=== PATIENT | male | born 1970 | race Caucasian/White ===

== ENCOUNTER 2022-01-24 13:07 | Emergency (ER) | payer MEDICARE, BC, SELFPAY ==
[2022-01-24 13:17] VITALS: BP 185/128; PULSE 87; RESP 18; TEMP 36.3; O2SAT 96; BMI 28.7
--- NOTE | 2022-01-24 13:33 | ED_ITS ---
HPI - General Adult General Time Seen by Provider: 13:34 Date Seen: 01/24/22 Chief complaint: Flank Pain Stated complaint: Lower Back Pain Time Seen by Provider: 01/24/22 13:25 Source: patient Mode of arrival: ambulatory History of Present Illness HPI narrative: Santi is a 51-year-old male past medical history includes nephrolithiasis, MS who came over from urgent care for right flank pain. Patient states the pain has been there intermittently over the last week, he denies any hematuria, increased urinary frequency or pain with urination, he has had normal bowel movements as well. Denies any nausea vomiting, did have a partial colectomy in the past for complicated ulcerative colitis 2009. Patient states he had a kidney stone 3 years ago where he had fevers, nausea vomiting and worsening flank pain. Denies any fevers or chills at this time. Urgent care was concerned that he might have a kidney stone was sent over here for further imaging. Patient has been taking ibuprofen for pain. Pain is 6/10. He denies any chest pain or shortness of breath. He has no cardiac or stroke history. Related Data Home Medications Medication Instructions Recorded Confirmed amitriptyline 25 mg tablet 25 mg PO QDAY 01/24/22 01/24/22 atorvastatin 10 mg tablet 10 mg PO QDAY 01/24/22 01/24/22 cholecalciferol (vitamin D3) 25 25 mcg PO QDAY 01/24/22 01/24/22 mcg (1,000 unit) capsule ocrelizumab 30 mg/mL intravenous 600 mg IV [id number] 01/24/22 01/24/22 solution (Ocrevus) Allergies Allergy/AdvReac Type Severity Reaction Status Date / Time No Known Drug Allergies Allergy Verified 01/24/22 12:48 Review of Systems Status of ROS: Reports: 10 or more systems reviewed and unremarkable except as noted in History and below [facility] Social History Smoking Status: Never smoker Do you use any of these nicotine containing products: None Second hand tobacco smoke exposure: No How often do you have a drink containing alcohol: never How often do you have six or more drinks on one occasion: Never AUDIT-C Alcohol total score: 0 Non-prescribed substance use: denies use service: No Exam Narrative: Exam Narrative: General: NAD, sitting comfortably HEENT: PERRL, EOMI Neck: supple FROM Lungs: CTAB/L Heart: NSR, S1S2 Abdomen: Soft, BS normal, no tenderness to palpation. Back: tender to palpation the right lower lumbar paraspinal mm, no midline tenderness, tender to the right flank. Neuro: AAOX3 Const: Vital Signs, click to edit/add: Vital Signs - 24 hr 01/24/22 13:17 Temperature 97.3 F L Pulse Rate [Right Pulse Oximeter] 87 Respiratory Rate 18 Blood Pressure [Le ft Upper Arm] 185/128 H Pulse Oximetry 96 Oxygen Delivery Me thod Room Air Course Course Hospital Course: 130 PM: AIDET performed. Vitals show elevated blood pressure reading, will continue to monitor, for pain IM dosed Toradol 30 mg, patient does not want an IV at this time, he has been drinking normally, will obtain urinalysis, CBC, CMP, and urinalysis, suspecting urolithiasis. Patient was in agreement. Reevaluation(s) Reevaluation #1: will obtain CT abdomen and pelvis without IV contrast based on his history of nephrolithiasis. CBC showed no leukocytosis, urinalysis within normal limits, Metabolic panel showed mildly elevated LFTs. patient is feeling better after above care given. Reevaluation #2: CT abdomen pelvis without IV contrast: Redemonstration of parapelvic cystic changes of the kidneys and nonobstructive calculi in the collecting systems without evidence of distal obstructive calculus. Postoperative changes of the colon and small bowel status post resection and primary anastomosis with redemonstration of a focal loop of redundant sigmoid colon in the right upper quadrant similar to remote comparison without definite evidence of volvulus or obstruction. Patient was updated on his imaging results, no intra-abdominal findings, he is feeling better after above care given, he will continue with Motrin 400-600 mg every 4-6 hours as needed for pain, patient does have a history of right-sided sciatic pain which could be the cause for his symptoms, he has follow-up next week with his primary care provider. Reasons to return were given. Time: 15:50 Vital Signs Vital signs: Initial Vital Signs Temperature 97.3 F L 01/24/22 13:17 Temperature Source Temporal Artery Scan 01/24/22 13:17 Pulse Rate 87 01/24/22 13:17 Respiratory Rate 18 01/24/22 13:17 Blood Pressure 185/128 H 01/24/22 13:17 Blood Pressure Mean 147 01/24/22 13:17 Blood Pressure Position Sitting 01/24/22 13:17 Pulse Oximetry 96 01/24/22 13:17 Oxygen Delivery Method 01/24/22 13:17 Vital Signs Temperature 97.3 F L 01/24/22 13:17 Pulse Rate 87 01/24/22 13:17 Respiratory Rate 18 01/24/22 13:17 Blood Pressure 185/128 H 01/24/22 13:17 Pulse Oximetry 96 01/24/22 13:17 Oxygen Delivery Method 01/24/22 13:17 Temperature 97.3 F L 01/24/22 13:17 Pulse Rate 87 01/24/22 13:17 Respiratory Rate 18 01/24/22 13:17 Blood Pressure 185/128 H 01/24/22 13:17 Pulse Oximetry 96 01/24/22 13:17 Oxygen Delivery Method 01/24/22 13:17 Medical Decision Making Lab Data Labs: Lab Results 01/24/22 01/24/22 01/24/22 Range/Units 13:30 13:43 13:43 WBC 6.64 (4.50-11.00) K/uL RBC 5.31 (4.30-5.90) m/uL Hgb 16.0 (13.5-17.5) gm/dL Hct 44.9 (37.0-53.0) % MCV 85 (80-100) fL MCH 30 (26-34) pg MCHC 36 (32-36) gm/dL RDW Coeff of Caryl 12.3 (11.5-15.5) % Plt Count 204 (140-440) K/uL Neut % (Auto) 73.6 H (42.0-72.0) % Lymph % (Auto) 17.5 L (20-44) % [place] % (Auto) 6.6 (0.0-11.0) % Eos % (Auto) 1.8 (0.0-7.0) % Baso % (Auto) 0.3 (0.0-3.0) % Neut # (Auto) 4.90 (1.7-7.0) K/uL Lymph # (Auto) 1.20 (0.90-2.90) K/uL [place] # (Auto) 0.40 (0.00-0.90) K/UL Eos # (Auto) 0.12 (0.00-0.50) K/uL Baso # (Auto) 0.02 (0.00-0.30) K/uL Abs Immat Gran (auto) 0.01 (0.00-0.30) K/uL Sodium 137 (135-149) mmol/L Potassium 4.1 (3.6-5.1) mmol/L Chloride 105 (96-114) mmol/L Carbon Dioxide 21 (20-32) mmol/L BUN 11 (7-30) mg/dL Creatinine 0.9 (0.5-1.5) mg/dL Estimated Creat Clear 98.01 Estimated GFR 102 ml/min Glucose 115 (60-115) mg/dL Calcium 9.2 (8.4-10.6) mg/dL Total Bilirubin 0.6 (0.1-1.5) mg/dL AST 42 H (12-35) U/L ALT 62 H (4-50) U/L Alkaline Phosphatase 93 (40-150) U/L Total Protein 7.4 (6.0-8.3) g/dL Albumin 4.7 (3.3-5.0) g/dL Urine Color Yellow (Yellow) Urine Appearance Clear (Clear) Urine pH 6.0 (5.0-8.5) Ur Specific [place] 1.025 (1.000-1.030) Urine Protein Negative (Negative) Urine Glucose (UA) Negative (Negative) Urine Ketones Negative (Negative) Urine Blood Negative (Negative) Urine Nitrite Negative (Negative) Urine Bilirubin Negative (Negative) Urine Urobilinogen 0.2 (0.2-1.0) Ur Leukocyte Esterase Negative (Negative) Urine RBC 0-2 (0-2) Urine WBC 0-2 (0-5) Ur Squamous Epith Cells None (None-Few) Urine Bacteria None (None) Discharge Plan Discharge Clinical Impression: Right flank pain, History of nephrolithiasis Patient Disposition: Home, Self-Care Condition: Improved Instructions: Flank Pain (ED) Additional Instructions: To continue with Motrin or ibuprofen 400-600 mg every 4-6 hours as needed for pain, follow-up with primary care provider as scheduled next week, return if worsening symptoms. Prescriptions: No Action amitriptyline 25 mg tablet 25 mg PO QDAY atorvastatin 10 mg tablet 10 mg PO QDAY cholecalciferol (vitamin D3) 25 mcg (1,000 unit) capsule 25 mcg PO QDAY Ocrevus 30 mg/mL solution 600 mg IV [id number] Follow Up/Referrals: Kenneth Louie MD [Primary Care Provider] - Stand Alone Forms: [facility] Info Instructions
[2022-01-24] MEDS: KETOROLAC 30 MG/ML inj IM (13:37)
[2022-01-24 13:48] LABS: Basophils Absolute Auto 0.02 K/uL (0.00-0.30); Basophils Percent Auto 0.3 % (0.0-3.0); Eosinophils Absolute Auto 0.12 K/uL (0.00-0.50); Eosinophils Percent Auto 1.8 % (0.0-7.0); Hematocrit 44.9 % (37.0-53.0); Immature Granulocytes Abs Auto 0.01 K/uL (0.00-0.30); Lymphocytes Percent Auto 17.5 % (20-44); Mean Corpuscular HGB Conc 36 gm/dL (32-36); Mean Corpuscular Hemoglobin 30 pg (26-34); Mean Corpuscular Volume 85 fL (80-100); Monocytes Percent Auto 6.6 % (0.0-11.0); Neutrophils Percent Auto 73.6 % (42.0-72.0); Platelet Count* 204 K/uL (140-440); RDW Coefficient of Variation % 12.3 % (11.5-15.5); Red Blood Count 5.31 m/uL (4.30-5.90); White Blood Count* 6.64 K/uL (4.50-11.00)
[2022-01-24 13:51] LABS: Slide Review Reflex No
[2022-01-24 13:57] LABS: Appearance Urine Clear (Clear); Bilirubin Urine Negative (Negative); Blood Urine Negative (Negative); Color Urine Yellow (Yellow); Glucose Urine Negative (Negative); Ketones Urine Negative (Negative); Leukocyte Esterase Urine Negative (Negative); Nitrite Urine Negative (Negative); Protein Urine Negative (Negative); Specific Gravity Urine 1.025 (1.000-1.030); Urobilinogen Urine 0.2 (0.2-1.0)
[2022-01-24 14:07] LABS: Albumin* 4.7 g/dL (3.3-5.0); Chloride* 105 mmol/L (96-114)
[2022-01-24 14:08] LABS: Potassium* 4.1 mmol/L (3.6-5.1); Sodium* 137 mmol/L (135-149)
[2022-01-24 14:10] LABS: Aspartate Amino Transferase* 42 U/L (12-35); Bilirubin Total* 0.6 mg/dL (0.1-1.5); Carbon Dioxide* 21 mmol/L (20-32); Creatinine* 0.9 mg/dL (0.5-1.5); Est. Creatinine Clearance* 98.01; Estimated Glomerular Filt Rate 102 ml/min
[2022-01-24 14:11] LABS: Alanine Aminotransferase* 62 U/L (4-50); Alkaline Phosphatase* 93 U/L (40-150); Blood Urea Nitrogen* 11 mg/dL (7-30); Calcium* 9.2 mg/dL (8.4-10.6); Glucose* 115 mg/dL (60-115); Total Protein* 7.4 g/dL (6.0-8.3)
[2022-01-24 14:16] LABS: RBC Urine 0-2 (0-2); WBC Urine 0-2 (0-5)
--- NOTE | 2022-01-24 14:23 | CRLHL7_ITS ---
For Patients: As a result of the 21st Century Cures Act, medical imaging exams and procedure reports are released immediately into your electronic medical record. You may view this report before your referring provider. If you have questions, please contact your health care provider. Indication: Right flank pain, history of nephrolithiasis Technique: Volumetric multidetector CT images of the abdomen and pelvis were without the administration of intravenous contrast. Comparison: CT abdomen and pelvis August 27, 2018 Findings: The lung bases are clear. The liver is enlarged with moderate hepatic steatosis and hepatomegaly. There is no focal abnormality. The gallbladder is unremarkable without evidence of radiopaque calculus. There is no significant common biliary ductal dilatation or abrupt cut off. The spleen is normal in attenuation and size. The stomach and duodenum are grossly unremarkable. The pancreas is normal in attenuation without significant atrophy. The adrenal glands are unremarkable. There are parapelvic cystic changes of the bilateral kidneys again seen with nonobstructive calculi in the collecting systems. No evidence of distal obstructive calculus. Postoperative changes of the bowel and colon status post multiple resections and primary anastomosis with demonstration of somewhat prominent loop of sigmoid colon seen within the right upper quadrant with mild gaseous distention. There is a similar configuration seen on remote comparison exam. The appendix is not visualized. There is no significant mesenteric, retroperitoneal, or pelvic sidewall lymph nodes. The aorta is nonaneurysmal. There is no significant atherosclerotic disease appreciated. The solid pelvic viscera are grossly unremarkable. There is no free fluid or free air. Postoperative changes of the anterior abdomen are appreciated. The lumbar vertebral body heights are grossly maintained with mild to moderate multilevel degenerative disc disease. There is minimal retrolisthesis of L2 on L3. There is moderate facet arthrosis. There is no evidence of displaced fracture or dislocation. Impression: Redemonstration of parapelvic cystic changes of the kidneys and nonobstructive calculi in the collecting systems without evidence of distal obstructive calculus. Postoperative changes of the colon and small bowel status post resection and primary anastomosis with redemonstration of a focal loop of redundant sigmoid colon in the right upper quadrant similar to remote comparison without definite evidence of volvulus or obstruction. Otherwise, no definite acute intra-abdominal abnormality is appreciated. Please note that all CT scans at this facility use dose modulation, iterative reconstruction, and/or weight-based dosing when appropriate to reduce radiation dose to as low as reasonably achievable. Dictated by Babak Harp MD @ 01/24/2022 3:40:01 PM (Electronically Signed)
[2022-01-24 15:55] VITALS: BP 156/111
== END 2022-01-24 15:55 | disposition home or self-care (01) ==
PROVIDERS: Emergency Provider Student in an Organized Health Care Education/Training Program; PCP Surgery
DX: R10.9 Unspecified abdominal pain (principal); Z87.442 Personal history of urinary calculi
CPT/HCPCS: 36415; 74176; 80053; 81001; 81003; 85025; 96372; 99283; 99284; J1885

== ENCOUNTER 2023-12-03 15:28 | Emergency (ER) | payer MEDICARE, BC, SELFPAY ==
[2023-12-03 15:37] VITALS: BP 153/98; PULSE 64; RESP 18; TEMP 35.8; O2SAT 97; BMI 28.1
--- NOTE | 2023-12-03 15:46 | ED_ITS ---
HPI - General Adult General Date Seen: 12/03/23 Chief complaint: Weakness Stated complaint: dehydrated, COVID+ Time Seen by Provider: 12/03/23 15:46 History of Present Illness HPI narrative: This is a 53-year-old male with a history of ulcerative cor lightest and previous colectomy, history of kidney stones, also history of diabetes type 2, multiple sclerosis. His had a recent trip to [place] and back. She came down with COVID last Friday, the day after she got home and tested positive. She is now mostly getting better. The patient developed symptoms of COVID 4 days ago, on Friday. Symptoms started with fatigue, dizziness, weakness, mild cough. He was feeling run down and actually had a couple of falls (not uncommon because of his MS) on Friday and Friday. He was doing a bit better yesterday on Friday but was not back to normal. Today in addition to his other symptoms he is now having GI symptoms including significant watery diarrhea, nausea and dry heaving, left flank pain, and worsening weakness. Because of his history of colectomy he tends to have at least 5 soft/watery stools per day. Often times when he gets behind on fluids, it is hard for him to catch up orally because his small intestine just does not absorb in retained enough water. He is feeling very weak and feels like he needs IV fluids. He is not having any fever. No chest pain. He is not really short of breath but his left flank hurts when he breathes. He does have a cough, nonproductive. No sore throat. No headache. No swelling in his legs. He has had previous COVID vaccines. Related Data Home Medications ?Medication ?Instructions ?Recorded ?Confirmed amitriptyline 25 mg tablet 25 mg PO QDAY 01/24/22 01/20/23 atorvastatin 10 mg tablet 10 mg PO QDAY 01/24/22 12/03/23 ocrelizumab 30 mg/mL intravenous 600 mg IV [id number] 01/24/22 12/03/23 solution (Ocrevus) pregabalin 75 mg capsule 75 mg PO BID 12/03/23 12/03/23 Previous Rx's ?Medication ?Instructions ?Recorded cephalexin 500 mg capsule 500 mg PO Q12H #10 caps 12/03/23 nirmatrelvir 300 mg (150 mg See Rx Instructions PO .COMPLEX 12/03/23 x2)-ritonavir 100 mg tablet,dose #30 ea pack (Paxlovid) ondansetron HCl 4 mg tablet 4 mg PO Q8H PRN nausea and 12/03/23 vomiting 4 days #10 tabs Allergies Allergy/AdvReac Type Severity Reaction Status Date / Time No Known Drug Allergies Allergy Verified 12/03/23 15:42 [facility] Social History Smoking Status: Never smoker Do you use any of these nicotine containing products: None Second hand tobacco smoke exposure: No How often do you have a drink containing alcohol: never How often do you have six or more drinks on one occasion: Never AUDIT-C Alcohol total score: 0 Non-prescribed substance use: denies use service: No Exam Narrative: Exam Narrative: Constitutional: Appears well-developed and well-nourished. Alert. Conversant. Requires assistance to sit up on the edge of the bed for lung exam. Generalized weakness HENT: Head: Atraumatic. Nose: Nose normal. Mouth/Throat: Oral mucosa is clear but mucous membranes dry. Eyes: Conjunctivae normal. EOM normal. Pupils equal, round, and reactive to light. No scleral icterus. Neck: Normal range of motion. Neck supple. No tracheal deviation present. No JVD Cardiovascular: Normal rate, regular rhythm. No gallop. No friction rub. No murmur heard. Symmetric radial artery pulses Pulmonary/Chest: Effort normal. No stridor. No respiratory distress. No wheezes. No rales. No rhonchi . No tenderness. Abdominal: Soft. Bowel sounds normal. No distension. No mass. No tenderness. No rebound. No guarding. Left CVA tenderness. Musculoskeletal: RUE: Normal range of motion. No tenderness. No deformity LUE: Normal range of motion. No tenderness. No deformity RLE: Normal range of motion. No edema. No tenderness. No deformity LLE: Normal range of motion. No edema. No tenderness. No deformity Neurological: Alert and oriented to person, place, and time. Normal strength. CN II-VII intact. No sensory deficit. GCS eye subscore is 4. GCS verbal subscore is 5. GCS motor subscore is 6. Normal coordination Skin: Skin is warm and dry. No rash noted. No pallor. Normal capillary refill. Psychiatric: Normal mood. Flat affect because he is feeling run down affect. supportive. They interact politely together Const: Vital Signs, click to edit/add: Vital Signs - 24 hr 12/03/23 15:37 12/03/23 18:51 Temperature 96.5 F L Pulse Rate [Pulse Oximeter] 64 71 Respiratory Rate 18 18 Blood Pressure [Ri ght Upper Arm] 153/98 H 135/95 H Pulse Oximetry 97 95 Oxygen Delivery Me thod Room Air Room Air Course Course ED Course: Recheck-feeling substantially better after receiving a L of lactated Ringer's. Nausea improved after Zofran. Tolerating p.o.. Feels much stronger and is requesting discharge. Would like to check urine because of his left flank pain. He agrees to stay to provide urinalysis. Vital Signs Vital signs: Initial Vital Signs Temperature 96.5 F L 12/03/23 15:37 Temperature Source Temporal Artery Scan 12/03/23 15:37 Pulse Rate 64 12/03/23 15:37 Respiratory Rate 18 12/03/23 15:37 Blood Pressure 153/98 H 12/03/23 15:37 Blood Pressure Mean 116 H 12/03/23 15:37 Blood Pressure Position Sitting 12/03/23 15:37 Pulse Oximetry 97 12/03/23 15:37 Oxygen Delivery Method Room Air 12/03/23 15:37 Vital Signs Temperature 96.5 F L 12/03/23 15:37 Pulse Rate 64 12/03/23 15:37 Respiratory Rate 18 12/03/23 15:37 Blood Pressure 153/98 H 12/03/23 15:37 Pulse Oximetry 97 12/03/23 15:37 Oxygen Delivery Method Room Air 12/03/23 15:37 Temperature 96.5 F L 12/03/23 15:37 Pulse Rate 71 12/03/23 18:51 Respiratory Rate 18 12/03/23 18:51 Blood Pressure 135/95 H 12/03/23 18:51 Pulse Oximetry 95 12/03/23 18:51 Oxygen Delivery Method Room Air 12/03/23 18:51 Medications Administered Medications: Discontinued Medications Generic Name Dose Route Start Last Admin Trade Name Freq PRN Reason Stop Dose Admin Ketorolac Tromethamine 15 mg 12/03/23 16:11 12/03/23 16:48 Ketorolac 15 Mg/Ml Inj IVP 12/03/23 16:12 15 mg ONCE ONE Administration Lactated Ringer's 1,000 ml 12/03/23 16:11 12/03/23 16:45 Lactated Ringers 1000 Ml IV 12/03/23 16:12 1,000 ml ONCE ONE Administration Ondansetron HCl 4 mg 12/03/23 16:11 12/03/23 16:46 Ondansetron 2 Mg/Ml Inj IVP 12/03/23 16:12 4 mg ONCE ONE Administration Medical Decision Making MDM Narrative Medical decision making narrative: Very pleasant but medically complex 53-year-old male with a history of UC and buttock colectomy with chronic diarrhea, history of type 2 diabetes, and history of MS. He presents to the ER today with symptoms of coronavirus. He tested positive with a home test yesterday. He does have mild cough but fortunately no hypoxia or respiratory distress. Chest x-ray does show subtle bilateral infiltrates which are consistent with COVID pneumonia. At this point does not require hospitalization. He also has significant constitutional symptoms including fatigue, myalgias, weakness, and a lot of GI symptoms with nausea and vomiting and diarrhea which have led to significant dehydration. He feels much better after receiving IV fluids. Nausea improved after Zofran. He feels confident that he will be able to maintain hydration at home. Laboratory workup shows normal WBC, normal electrolytes and kidney function save for mildly low bicarb which would be consistent with dehydration. Glucose is only minimally elevated. No evidence for DKA. He is also complaining of pain in his left flank and left lateral side of his abdomen. Differential here would include myalgias from COVID, pyelonephritis, kidney stone, among others. The pain is not in his chest or ribs to suggest PE, pneumothorax, pleural effusion. Urinalysis obtained and does show pyuria but no hematuria on the micro (some evidence of blood on the urinalysis). Will treat with a course of antibiotics for urinary tract infection. At this point no evidence for urosepsis requiring hospitalization. With his high risk medical conditions and coronavirus (currently on 4th day of symptoms) I do think he would be a candidate for Paxlovid to prevent serious illness. Discussed with the patient and his . They agree. Prescription provided. Based on the [employer] med interaction database we do need to hold his atorvastatin while he is on Paxlovid. Discussed with the patient and his . They understand. Precautions for return to the ER reviewed and questions answered.. Lab Data Labs: Lab Results 12/03/23 12/03/23 Range/Units 16:30 18:00 WBC 9.57 (4.50-11.00) K/uL RBC 5.51 (4.30-5.90) m/uL Hgb 16.1 (13.5-17.5) gm/dL Hct 46.7 (37.0-53.0) % MCV 85 (80-100) fL MCH 29 (26-34) pg MCHC 35 (32-36) gm/dL RDW Coeff of Caryl 11.9 (11.5-15.5) % Plt Count 175 (140-440) K/uL Neut % (Auto) 91.4 H (42.0-72.0) % Lymph % (Auto) 4.8 L (20-44) % [place] % (Auto) 3.6 (0.0-11.0) % Eos % (Auto) 0.0 (0.0-7.0) % Baso % (Auto) 0.0 (0.0-3.0) % Neut # (Auto) 8.70 H (1.7-7.0) K/uL Lymph # (Auto) 0.50 L (0.90-2.90) K/uL [place] # (Auto) 0.30 (0.00-0.90) K/UL Eos # (Auto) 0.00 (0.00-0.50) K/uL Baso # (Auto) 0.00 (0.00-0.30) K/uL Abs Immat Gran (auto) 0.02 (0.00-0.30) K/uL Imm/Tot Granulo (auto) 0.2 % Sodium 136 (135-149) mmol/L Potassium 4.1 (3.6-5.1) mmol/L Chloride 106 (96-114) mmol/L Carbon Dioxide 18 L (20-32) mmol/L Anion Gap 12 (7-15) mEq/L BUN 16 (7-30) mg/dL Creatinine 1.3 (0.5-1.5) mg/dL Estimated Creat Clear 64.20 Estimated GFR 65 ml/min Glucose 173 H (60-115) mg/dL Calcium 9.1 (8.4-10.6) mg/dL Total Bilirubin 0.7 (0.1-1.5) mg/dL AST 37 H (12-35) U/L ALT 38 (4-50) U/L Alkaline Phosphatase 95 (40-150) U/L Total Protein 7.4 (6.0-8.3) g/dL Albumin 4.9 (3.3-5.0) g/dL Urine Color Yellow (Yellow) Urine Appearance Slightly Cloudy A (Clear) Urine pH 5.5 (5.0-8.5) Ur Specific [place] >= 1.030 (1.000-1.030) Urine Protein 1+ A (Negative) Urine Glucose (UA) Negative (Negative) Urine Ketones 3+ A (Negative) Urine Blood 3+ A (Negative) Urine Nitrite Negative (Negative) Urine Bilirubin Negative (Negative) Urine Urobilinogen 0.2 (0.2-1.0) Ur Leukocyte Esterase Negative (Negative) Urine RBC 0-2 (0-2) Urine WBC 25-50 A (0-5) Ur Squamous Epith Cells None (None-Few) Urine Bacteria Few A (None) Fine Granular Casts Few A (None) Imaging Data Chest x-ray: Attestation: I have reviewed the pertinent imaging results. My impression: Probable small right and left lower lobe infiltrates-Dr. Salamanca. Radiologist's impression: IMPRESSION: Small focal consolidation at the right medial lung base with a questionable additional left medial lung base consolidation. While these could reflect atelectasis given the slightly low lung volumes, they are concerning for possible multifocal pneumonia in the setting of reported COVID ECG Data Attestation: I personally reviewed and interpreted this ECG as follows: Interpretation: Normal sinus rhythm Rate: 79 NE: 200 QRS axis: normal ST segment/T wave: No ST elevation or depression QTc: 421 Discharge Plan Discharge Clinical Impression: COVID-19, Acute dehydration, Acute UTI Patient Disposition: Home, Self-Care Condition: Stable Instructions: Dehydration (ED), Urinary Tract Infection in Men (DC), COVID-19 (Coronavirus Disease 2019) (ED), COVID-19 and Chronic Health Conditions (ED) Additional Instructions: As we discussed, please come back to the ER right away if you have any problems- especially if you have worsening trouble breathing, low oxygen levels, uncontrolled vomiting, dehydration, or weakness, or if you have any other problems. Start on Paxlovid as you are able. This may help reduce the chance of severe coronavirus illness . While you are on Paxlovid, do not take your atorvastatin. You can take your other medication Steak the [id number] treat your urinary tract infection Use Zofran if need to treat nausea and vomiting. Prescriptions: New ondansetron HCl 4 mg tablet 4 mg PO Q8H PRN (Reason: nausea and vomiting) 4 Days Qty: 10 0RF cephalexin 500 mg capsule 500 mg PO Q12H Qty: 10 0RF Paxlovid 300 mg (150 mg x 2)-100 mg tablets,dose pack See Rx Instructions .ROUTE .COMPLEX Qty: 30 0RF Rx Instructions: take TWO 150 mg tablets of nirmatrelvir with ONE 100 mg tablet of ritonavir twice daily for 5 days No Action amitriptyline 25 mg tablet 25 mg PO QDAY atorvastatin 10 mg tablet 10 mg PO QDAY Ocrevus 30 mg/mL solution 600 mg IV [id number] pregabalin 75 mg capsule 75 mg PO BID Follow Up/Referrals: Kenneth Louie MD [Primary Care Provider] - Stand Alone Forms: [employer] Info Instructions
--- NOTE | 2023-12-03 16:12 | CRLHL7_ITS ---
For Patients: As a result of the Century Cures Act, medical imaging exams and procedure reports are released immediately into your electronic medical record. You may view this report before your referring provider. If you have questions, please contact your health care provider. INDICATION: COVID, cough, weakness. TECHNIQUE: Chest 1 views. COMPARISON: Chest radiographs dated 06/08/2019. FINDINGS: Heart and mediastinum: Heart size is normal. Unremarkable mediastinum. Lungs and pleural spaces: Slightly low lung volumes. Focal consolidation at the right medial lung base, partially obscuring the right heart border. Query additional hazy opacity at the left medial lung base. No sign of pleural effusion. No pneumothorax. Bones and soft tissues: No significant findings. IMPRESSION: Small focal consolidation at the right medial lung base with a questionable additional left medial lung base consolidation. While these could reflect atelectasis given the slightly low lung volumes, they are concerning for possible multifocal pneumonia in the setting of reported COVID. Dictated by Shade Hinton MD @ 12/03/2023 5:50:04 PM (Electronically Signed)
[2023-12-03 16:41] LABS: Hematocrit 46.7 % (37.0-53.0); Hemoglobin* 16.1 gm/dL (13.5-17.5); Immature Granulocytes Abs Auto 0.02 K/uL (0.00-0.30); Immature Granulocytes Pct Auto 0.2 %; Lymphocytes Percent Auto 4.8 % (20-44); Mean Corpuscular HGB Conc 35 gm/dL (32-36); Mean Corpuscular Hemoglobin 29 pg (26-34); Mean Corpuscular Volume 85 fL (80-100); Monocytes Percent Auto 3.6 % (0.0-11.0); Neutrophils Percent Auto 91.4 % (42.0-72.0); Platelet Count* 175 K/uL (140-440); RDW Coefficient of Variation % 11.9 % (11.5-15.5); Red Blood Count 5.51 m/uL (4.30-5.90); White Blood Count* 9.57 K/uL (4.50-11.00)
[2023-12-03 16:45] LABS: Slide Review Reflex No
[2023-12-03] MEDS: LACTATED RINGERS 1000 ML IV (16:45)
[2023-12-03] MEDS: ONDANSETRON 2 MG/ML inj 4 MG IVP (16:46)
[2023-12-03] MEDS: KETOROLAC 15 MG/ML inj IVP (16:48)
[2023-12-03 16:56] LABS: Albumin* 4.9 g/dL (3.3-5.0); Chloride* 106 mmol/L (96-114)
[2023-12-03 16:57] LABS: Potassium* 4.1 mmol/L (3.6-5.1); Sodium* 136 mmol/L (135-149)
[2023-12-03 16:59] LABS: Anion Gap 12 mEq/L (7-15); Aspartate Amino Transferase* 37 U/L (12-35); Bilirubin Total* 0.7 mg/dL (0.1-1.5); Carbon Dioxide* 18 mmol/L (20-32); Creatinine* 1.3 mg/dL (0.5-1.5); Estimated Glomerular Filt Rate 65 ml/min; Total Protein* 7.4 g/dL (6.0-8.3)
[2023-12-03 17:00] LABS: Alanine Aminotransferase* 38 U/L (4-50); Alkaline Phosphatase* 95 U/L (40-150); Blood Urea Nitrogen* 16 mg/dL (7-30); Calcium* 9.1 mg/dL (8.4-10.6); Glucose* 173 mg/dL (60-115)
[2023-12-03 18:09] LABS: Bilirubin Urine Negative (Negative); Blood Urine 3+ (Negative); Glucose Urine Negative (Negative); Ketones Urine 3+ (Negative); Leukocyte Esterase Urine Negative (Negative); Nitrite Urine Negative (Negative); Protein Urine 1+ (Negative); Specific Gravity Urine >= 1.030 (1.000-1.030); Urobilinogen Urine 0.2 (0.2-1.0); pH Urine 5.5 (5.0-8.5)
[2023-12-03 18:20] LABS: Appearance Urine Slightly Cloudy (Clear); Color Urine Yellow (Yellow)
[2023-12-03 18:39] LABS: RBC Urine 0-2 (0-2)
[2023-12-03 18:40] LABS: Bacteria Urine Few; Fine Granular Casts Urine Few; WBC Urine 25-50 (0-5)
[2023-12-03 18:51] VITALS: BP 135/95; PULSE 71; RESP 18; O2SAT 95
== END 2023-12-03 19:22 | disposition home or self-care (01) ==
PROVIDERS: Emergency Provider Emergency Medicine; PCP Surgery
DX: U07.1 COVID-19 (principal); N39.0 Urinary tract infection, site not specified
CPT/HCPCS: 36415; 71045; 80053; 81001; 85025; 87086; 93005; 96374; 96375; 99283; 99284; J1885; J2405; J7120

== ENCOUNTER 2024-02-12 14:47 | Emergency (ER) | payer MEDICARE, BC, SELFPAY ==
[2024-02-12 14:53] VITALS: BP 122/83; PULSE 108; RESP 20; TEMP 36.6; O2SAT 97; BMI 27.3
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
[2024-02-12] MEDS: ONDANSETRON 2 MG/ML inj 4 MG IVP (15:30)
[2024-02-12] MEDS: 0.9 % SODIUM CHLORIDE 500 ML 500 ML IV (15:40)
[2024-02-12] MEDS: KETOROLAC 30 MG/ML inj IVP (15:47)
== END 2024-02-12 16:30 | disposition home or self-care (01) ==
PROVIDERS: Emergency Provider Emergency Medicine Emergency Medical Services; PCP Surgery
DX: E86.9 Volume depletion, unspecified (principal)
CPT/HCPCS: 96374; 96375; 99284; J1885; J2405; J7030

== ENCOUNTER 2025-02-09 17:04 | Emergency (ER) | payer MEDICARE, BC, SELFPAY ==
[2025-02-09] VITALS (10 sets, daily range): BP systolic 140–153; BP diastolic 106–111; PULSE 103–122; RESP 16–18; TEMP 36.8; O2SAT 91–96; BMI 28.0
[2025-02-09] MEDS: LACTATED RINGERS 1000 ML 1,000 ML IV (19:16)
--- NOTE | 2025-02-09 19:28 | ED.GENADULT ---
HPI - General Adult General Date Seen: 02/09/25 Chief complaint: Abdominal Pain Stated complaint: dehydrated, stomach pain Time Seen by Provider: 02/09/25 18:36 Source: patient Mode of arrival: ambulatory Limitations: no limitations History of Present Illness HPI narrative: Patient is a 54-year-old male with a history of MS and a for colectomy presenting to the emergency department for concerns of dehydration. States this morning he started having abdominal pain that has since been improving. Pain was in his mid abdominal region and was very tender to the touch. This still having some pain but is not as bad. He has also noticed distention of his abdomen overall he states he is feeling dehydrated. Has been having issues with dehydration ever since his colectomy and states this feels just like his previous episodes. Says this happens once a year. Is adamant that the symptoms seem exactly the same to his previous episodes of dehydration. Has not noticed any worsening diarrhea compared to his baseline. Denies fevers, chills, chest pain, shortness of breath, dysuria, headache, lightheadedness, dizziness, weakness, numbness. No other concerns noted at this time. Related Data Home Medications ?Medication ?Instructions ?Recorded ?Confirmed amitriptyline 25 mg tablet 25 mg PO QDAY 01/24/22 02/12/24 atorvastatin 10 mg tablet 10 mg PO QDAY 01/24/22 02/12/24 ocrelizumab 30 mg/mL intravenous 600 mg IV [id number] 01/24/22 02/12/24 solution (Ocrevus) amoxicillin 875 mg-potassium 1 tab PO BID 02/12/24 02/12/24 clavulanate 125 mg tablet blood-glucose sensor (Dexcom G7 02/12/24 02/12/24 Sensor device) pregabalin 75 mg capsule 75 mg PO BID 02/12/24 02/12/24 Allergies Allergy/AdvReac Type Severity Reaction Status Date / Time No Known Drug Allergies Allergy Verified 02/09/25 17:34 Review of Systems Status of ROS: Reports: 10 or more systems reviewed and unremarkable except as noted in History and below [facility] Social History Smoking Status: Never smoker Do you use any of these nicotine containing products: None Second hand tobacco smoke exposure: No How often do you have a drink containing alcohol: never How often do you have six or more drinks on one occasion: Never AUDIT-C Alcohol total score: 0 Non-prescribed substance use: denies use service: No Exam Narrative: Exam Narrative: Const: Well-nourished, Well-developed, in mild distress Eyes: PERRL, no conjunctival injection, and symmetrical lids HENT: Atraumatic external nose and ears. Moist mucous membranes. Neck: Symmetric, trachea midline, No thyromegaly. CVS: Tachycardia, No murmurs or gallops. Peripheral pulses 2+ and equal in all extremities RESP: Unlabored respiratory effort. Clear to auscultation bilaterally. GI: Mild mid abdominal tenderness and mild to moderate abdominal distension, No rebound or guarding. MSK:Extremities w/o deformity, Normal Active ROM Skin: Warm, Dry. No rashes or lesions. Neuro: Normal Muscle tone, No focal neurological deficits. Psych: Awake, Alert, & Oriented x3. Appropriate mood and affect. Const: Vital Signs, click to edit/add: Vital Signs - 24 hr 02/09/25 17:35 02/09/25 18:40 02/09/25 19:00 Temperature 98.2 F Pulse Rate 104 H 108 H Pulse Rate [Pulse Oximeter] 122 H Respiratory Rate 18 Blood Pressure 140/106 H Blood Pressure [Ri ght Upper Arm] 147/106 H Pulse Oximetry 96 95 95 Oxygen Delivery Me thod Room Air 02/09/25 19:01 02/09/25 19:30 02/09/25 19:42 Temperature Pulse Rate 103 H 109 H Pulse Rate [Pulse Oximeter] Respiratory Rate 16 16 Blood Pressure 150/111 H 153/107 H Blood Pressure [Ri ght Upper Arm] Pulse Oximetry 95 94 Oxygen Delivery Me thod 02/09/25 19:45 02/09/25 20:00 02/09/25 20:05 Temperature Pulse Rate 104 H 106 H 105 H Pulse Rate [Pulse Oximeter] Respiratory Rate Blood Pressure Blood Pressure [Ri ght Upper Arm] Pulse Oximetry 93 92 93 Oxygen Delivery Me thod 02/09/25 20:15 Temperature Pulse Rate 109 H Pulse Rate [Pulse Oximeter] Respiratory Rate Blood Pressure Blood Pressure [Ri ght Upper Arm] Pulse Oximetry 91 Oxygen Delivery Me thod Course Vital Signs Vital signs: Initial Vital Signs Temperature 98.2 F 02/09/25 17:35 Temperature Source Temporal Artery Scan 02/09/25 17:35 Pulse Rate 122 H 02/09/25 17:35 Respiratory Rate 18 02/09/25 17:35 Blood Pressure 147/106 H 02/09/25 17:35 Blood Pressure Mean 119 H 02/09/25 17:35 Pulse Oximetry 96 02/09/25 17:35 Oxygen Delivery Method Room Air 02/09/25 17:35 Vital Signs Temperature 98.2 F 02/09/25 17:35 Pulse Rate 122 H 02/09/25 17:35 Respiratory Rate 18 02/09/25 17:35 Blood Pressure 147/106 H 02/09/25 17:35 Pulse Oximetry 96 02/09/25 17:35 Oxygen Delivery Method Room Air 02/09/25 17:35 Temperature 98.2 F 02/09/25 17:35 Pulse Rate 109 H 02/09/25 20:15 Respiratory Rate 16 02/09/25 19:42 Blood Pressure 153/107 H 02/09/25 19:42 Pulse Oximetry 91 02/09/25 20:15 Oxygen Delivery Method Room Air 02/09/25 17:35 Medications Administered Medications: Discontinued Medications Generic Name Dose Route Start Last Admin Trade Name Freq PRN Reason Stop Dose Admin Hydromorphone HCl 0.5 mg 02/09/25 19:04 02/09/25 19:29 Hydromorphone 0.5 Mg/0.5 Ml Inj IVP 02/09/25 19:05 0.5 mg ONCE ONE Administration Lactated Ringer's 1,000 mls @ 1,000 mls/hr 02/09/25 19:04 02/09/25 19:44 Lactated Ringers 1000 Ml IV 02/09/25 20:03 Infused .Q1H ONE Infusion Medical Decision Making MDM Narrative Medical decision making narrative: Patient is a 54-year-old male presenting to the emergency department for concerns of dehydration. His abdominal pain seems to have improved he is very adamant this is just like his previous episodes dehydration. Considering his history is likely have a lot of CT scans already and after shared decision making was decided not to do another CT scan. Is having some pain and usually gets a L of fluids and dose of Dilaudid for his symptoms. This will be ordered. Also order CBC, lipase, magnesium, CMP. Is not having any urinary symptoms and I do not believe urinalysis is necessary. Patient is feeling much better after the medication. He states he does not feel like he needs another L of fluids. His CMP and lipase showed no concerning findings. His CBC shows elevated white blood cell count and hemoglobin compared to his baseline. This could be related to hemoconcentration from his dehydration by spoke to him again about possibly doing CT scan. He states he feels completely back to normal and he is not having any abdominal discomfort at all. After shared decision making it was decided not to do any further imaging. He will be discharged. Lab Data Labs: Lab Results 02/09/25 Range/Units 19:24 WBC 15.16 H (4.50-11.00) K/uL RBC 6.12 H (4.30-5.90) m/uL Hgb 18.3 H (13.5-17.5) gm/dL Hct 52.3 (37.0-53.0) % MCV 86 (80-100) fL MCH 30 (26-34) pg MCHC 35 (32-36) gm/dL RDW Coeff of Caryl 12.2 (11.5-15.5) % Plt Count 223 (140-440) K/uL Neut % (Auto) 92.7 H (42.0-72.0) % Lymph % (Auto) 3.5 L (20-44) % [place] % (Auto) 2.6 (0.0-11.0) % Eos % (Auto) 0.2 (0.0-7.0) % Baso % (Auto) 0.1 (0.0-3.0) % Neut # (Auto) 14.10 H (1.7-7.0) K/uL Lymph # (Auto) 0.50 L (0.90-2.90) K/uL [place] # (Auto) 0.40 (0.00-0.90) K/UL Eos # (Auto) 0.00 (0.00-0.50) K/uL Baso # (Auto) 0.00 (0.00-0.30) K/uL Abs Immat Gran (auto) 0.10 (0.00-0.30) K/uL Imm/Tot Granulo (auto) 0.9 % Sodium 136 (135-149) mmol/L Potassium 4.5 (3.6-5.1) mmol/L Chloride 103 (96-114) mmol/L Carbon Dioxide 21 (20-32) mmol/L Anion Gap 12 (7-15) mEq/L BUN 16 (7-30) mg/dL Creatinine 1.0 (0.5-1.5) mg/dL Estimated Creat Clear 85.17 Estimated GFR 88 ml/min Glucose 165 H (60-115) mg/dL Calcium 9.9 (8.4-10.6) mg/dL Magnesium 1.7 (1.5-2.6) mg/dL Total Bilirubin 1.1 (0.1-1.5) mg/dL AST 30 (12-35) U/L ALT 39 (4-50) U/L Alkaline Phosphatase 92 (40-150) U/L Total Protein 7.4 (6.0-8.3) g/dL Albumin 4.8 (3.3-5.0) g/dL Lipase 57 (23-300) U/L Discharge Plan Discharge Clinical Impression: Dehydration Patient Disposition: Home, Self-Care Condition: Improved Instructions: Dehydration (DC) Additional Instructions: Make sure to stay well hydrated at home. If you start developing worsening abdominal pain or any other symptoms return for re-evaluation. Prescriptions: No Action amitriptyline 25 mg tablet 25 mg PO QDAY atorvastatin 10 mg tablet 10 mg PO QDAY amoxicillin-pot clavulanate 875-125 mg tablet 1 tab PO BID pregabalin 75 mg capsule 75 mg PO BID (DME) Dexcom G7 Sensor Device MISCELLANEOUS 2XW Ocrevus 30 mg/mL solution 600 mg IV [id number] Follow Up/Referrals: Kenneth Louie MD [Primary Care Provider, Family Practice] Stand Alone Forms: [facility] Info Instructions
[2025-02-09 19:41] LABS: Hematocrit* 52.3 % (37.0-53.0); Hemoglobin* 18.3 gm/dL (13.5-17.5); Immature Granulocytes Pct Auto 0.9 %; Mean Corpuscular HGB Conc 35 gm/dL (32-36); Mean Corpuscular Hemoglobin 30 pg (26-34); Mean Corpuscular Volume 86 fL (80-100); RDW Coefficient of Variation % 12.2 % (11.5-15.5); Red Blood Count* 6.12 m/uL (4.30-5.90); White Blood Count* 15.16 K/uL (4.50-11.00)
[2025-02-09 19:51] LABS: Albumin* 4.8 g/dL (3.3-5.0); Chloride* 103 mmol/L (96-114); Potassium* 4.5 mmol/L (3.6-5.1); Sodium* 136 mmol/L (135-149)
[2025-02-09 19:53] LABS: Alanine Aminotransferase* 39 U/L (4-50); Alkaline Phosphatase* 92 U/L (40-150); Anion Gap 12 mEq/L (7-15); Aspartate Amino Transferase* 30 U/L (12-35); Bilirubin Total* 1.1 mg/dL (0.1-1.5); Blood Urea Nitrogen* 16 mg/dL (7-30); Carbon Dioxide* 21 mmol/L (20-32); Creatinine* 1.0 mg/dL (0.5-1.5); Est. Creatinine Clearance* 85.17; Estimated Glomerular Filt Rate 88 ml/min; Total Protein* 7.4 g/dL (6.0-8.3)
[2025-02-09 19:54] LABS: Calcium* 9.9 mg/dL (8.4-10.6); Glucose* 165 mg/dL (60-115); Immature Granulocytes Abs Auto 0.10 K/uL (0.00-0.30); Lymphocytes Absolute Auto 0.50 K/uL (0.90-2.90); Slide Review Reflex No
== END 2025-02-09 20:24 | disposition home or self-care (01) ==
PROVIDERS: Emergency Provider Student in an Organized Health Care Education/Training Program; PCP Surgery
DX: E86.0 Dehydration (principal)
CPT/HCPCS: 36415; 80053; 83690; 83735; 85025; 94761; 96374; 99284; J1171; J7120